=== PATIENT | female | born 1995 | race Two or more races ===

== ENCOUNTER 2022-03-09 09:42 | Emergency (ER) | payer OTHER ==
[~2022-03-09] VITALS: Ht 167.6 cm; Wt 72.6 kg
== END 2022-03-09 14:35 | disposition home or self-care (01) ==
LOC: ER 09:42
DX: O46.8X1 Other antepartum hemorrhage, first trimester (principal); Z3A.08 8 weeks gestation of pregnancy; Z20.822 Contact with and (suspected) exposure to COVID-19